=== PATIENT | male | born 1990 | race Caucasian/White ===

== ENCOUNTER 2017-05-11 16:27 | Emergency (ER) | payer SELFPAY ==
[2017-05-11] MEDS ORDERED: Albuterol/Ipratropium 3.0-0.5 MG/3 ML Neb Soln NEB ONE (16:38)
[2017-05-11 17:15] VITALS: BP 143/89
[2017-05-11] MEDS ORDERED: Take Home: predniSONE 20 MG, 2 Tab Pack PO ONE (17:49)
[2017-05-11] MEDS ORDERED: Take Home: Albuterol 6.7 GM Inhaler, 1 Inhaler Pack INH ONE (17:49)
[2017-05-11] MEDS ORDERED: Take Home: Azithromycin 250 MG, 2 Tab Pack PO ONE (17:49)
--- NOTE | 2017-05-12 09:36 | ER ---
Date of Service: 05/11/2017 SUBJECTIVE: Leobardo presents to the emergency room with complaints of cough, sore throat, and chest congestion. The patient states that he has been experiencing these symptoms for approximately the past 2 days. He states that he is experiencing some rhinorrhea and a hoarse voice. The patient states that he has not been experiencing any significant fever or chills. Denies any skin rashes, nausea, vomiting, or diarrhea. PAST MEDICAL HISTORY: 1. Cigarette smoker. 2. Frequent bronchitis. MEDICATIONS: None. ALLERGIES: NKDA. REVIEW OF SYSTEMS: General: No fever or chills. HEENT: Please see history of present illness. Respiratory: Please see history of present illness. He states his cough is nonproductive. Cardiac: Denies any substernal chest pain. No jaw, arm, neck, or back pain. GI: No nausea, vomiting, or diarrhea. No melena, hematochezia, or hematemesis. : Denies any dysuria. Musculoskeletal: No myalgias or arthralgias. PHYSICAL EXAMINATION: General: This is a 27-year-old male patient, in no acute distress. Vital Signs: Blood pressure is 143/89, pulse rate 87, temperature is 37.4, respiratory rate is 20, and O2 saturations 96%. Skin: Warm, pink, and dry. HEENT: Head is normocephalic, atraumatic. Eyes, PERRLA. Extraocular intact. Mouth, oral mucosa is moist. His posterior hypopharynx is mildly erythematous. He does have some cobblestoning consistent with postnasal drip. Ears, TMs are clear. Neck: He does have some mild anterior cervical lymphadenopathy. Lungs: Clear to auscultation with some mild crackles noted. Heart: Regular rate and rhythm. Abdomen: Soft and nontender. There is no hepatosplenomegaly or masses noted. Extremities: Without edema. Neurologic: The patient is alert and oriented. Answers all questions appropriately. His speech is fluent. His gait is within normal limits. LABORATORY DATA: Rapid strep was performed and was negative. PA and lateral chest x-ray was obtained and was negative. EMERGENCY ROOM COURSE: The patient was given an albuterol breathing treatment, which he states improved his shortness of breath and cough significantly. He remained stable in my care in the emergency room. ASSESSMENT: Acute bronchitis. PLAN: The patient was started on albuterol inhaler 2 puffs every 4 to 6 hours as needed for cough and chest congestion. He was also started on prednisone 40 mg daily for 5 days total. He was given a dose of azithromycin 500 mg here in the emergency room, and then started on Zithromax 250 mg for the remainder of the 5 days. I would like him to follow up in the clinic in the next 10 to 14 days for recheck. All questions were answered. MWK: 05/11/2017 18:31:26 MODL: 05/11/2017 23:52:35 /[id number]
== END 2017-05-11 18:05 | disposition home or self-care (01) ==
LOC: VM.ED 16:27
DX: J20.9 Acute bronchitis, unspecified (principal); F17.210 Nicotine dependence, cigarettes, uncomplicated
CPT/HCPCS: 71020; 87081; 87880; 99285; A9270; 99283-GF